=== PATIENT | female | born 1990 | race Two or more races ===

== ENCOUNTER 2019-03-28 00:39 | Emergency (ER) | payer MEDICAID ==
[~2019-03-28] VITALS: Ht 154.9 cm; Wt 52.6 kg
[~2019-03-28 00:39] MED LIST: METH40TA13 PO; PREN-145 OR
[2019-03-28 01:59] LABS: Urine Bacteria FEW /hpf (None Seen); Urine Blood Negative /uL (Negative); Urine Hyaline Cast FEW /lpf (0 - 2); Urine Mucus FEW (None Seen); Urine Specific Gravity 1.031 (1.001-1.035); Urine WBC 21 /hpf (0 - 5)
[2019-03-28 02:21] VITALS: BP 119/79
[2019-03-28] MEDS ORDERED: HYDROcodone-ACET 5/325MG TAB PO ONE (02:45)
[2019-03-28] MEDS ORDERED: cefTRIAXone W LIDOCAINE 1 GM IM IM ONE (02:45)
[2019-03-28] MEDS ORDERED: cefTRIAXone SOD 1,000 MG VL IM ONE (03:00)
[2019-03-28] MEDS ORDERED: MAGNESIUM CITRATE SOLUTION 300 ML BTL PO ONE (03:15)
== END 2019-03-28 03:42 | disposition home or self-care (01) ==
LOC: ER 00:41
DX: N39.0 Urinary tract infection, site not specified (principal); F17.210 Nicotine dependence, cigarettes, uncomplicated; F12.10 Cannabis abuse, uncomplicated; F15.10 Other stimulant abuse, uncomplicated
CPT/HCPCS: 74176; 81001; 81025; 96372; 99284; J0696

== ENCOUNTER 2020-03-22 20:58 | Inpatient (IN) | payer MEDICAID ==
[~2020-03-22] VITALS: Ht 152.4 cm; Wt 62.5 kg
[2020-03-22] MEDS ORDERED: LEVOTHYROXINE SODIUM 25 MCG TAB PO ONE ×2 (21:45)
[2020-03-22] MEDS ORDERED: LEVOTHYROXINE SODIUM 100 MCG/5 ML INJ IV ONE (21:45)
[2020-03-22] MEDS ORDERED: SODIUM CHLORIDE 0.9% 1,000 ML IV ONE ×2 (21:45→22:30)
[2020-03-22] MEDS ORDERED: ONDANSETRON HCL 4 MG/2 ML VIAL IV ONE (21:45)
[2020-03-22] MEDS ORDERED: MORPHINE SULF INJ 2 MG/ML SYRINGE 1ML IV PRN (22:15)
[2020-03-22] MEDS ORDERED: DOCUSATE SOD 100 MG CAP PO PRN (22:15)
[2020-03-22] MEDS ORDERED: ACETAMINOPHEN 325 MG TAB PO PRN (22:15)
[2020-03-22] MEDS ORDERED: NITROGLYCERIN 0.4 MG SL TAB SL PRN (22:15)
[2020-03-22] MEDS ORDERED: fentaNYL CITRATE 100 MCG/2 ML VL IV ONE (23:00)
[2020-03-22 23:01] LABS: Basophils # (auto) 0 10 ^3/uL (0-0.2); Basophils % (auto) 0.1 % (0.0-2.0); Eosinophils # (auto) 0 10 ^3/uL (0-0.8); White Blood Cell 27.9 10^3/uL (4.4-10.8)
[2020-03-22 23:03] LABS: Hematocrit 41.2 % (36.0-46.0); Hemoglobin 13.3 g/dL (12.2-16.2); Lymphocytes # (auto) 0.7 10 ^3/uL (0.4-5.4); Lymphocytes % (auto) 2.5 % (10.0-50.0); Mean Corpuscular Hemoglobin 26.2 pg (28.0-32.0); Mean Corpuscular Hgb Conc. 32.3 g/dL (32.0-36.0); Mean Corpuscular Volume 81.1 fL (80.0-100.0); Monocytes # (auto) 0.3 10 ^3/uL (0-1.3); Monocytes % (auto) 1.1 % (0.0-12.0); Neutrophils # (auto) 26.8 10 ^3/uL (1.6-8.6); Neutrophils % (auto) 96.3 % (37.0-80.0); Platelet Count (auto) 414 10^3/uL (140-450); Red Blood Cells 5.07 10^6/uL (4.0-5.20); Red Cell Distribution Width 13.2 % (11.8-14.3)
[2020-03-22 23:14] LABS: INR 1.32 (0.9-1.15); Partial Thromboplastin Time 32.2 sec (23.0-31.2)
[2020-03-22 23:30] VITALS: BP 115/70
--- NOTE | 2020-03-22 23:30 | NUR ---
Patient Brought to Unit from ER Patient is AOx4 having signs of pain and discomfort. Patient showing signs of agitation and yelling, "my stomach hurts." Patient is on Tele# 37 and running sinus rhythm. Patient is laying in bed with HOB at 30 degrees and bed is locked in lowest position. Will give medications as prescribed. Will continue to monitor.
[2020-03-22 23:35] LABS: Albumin 3.8 g/dL (3.4-5.0); BUN/Creatinine Ratio 15.1; Bilirubin, Total 0.9 mg/dL (0.2-1.0); Calcium 9.5 mg/dL (8.5-10.1); Potassium 3.9 mmol/L (3.5-5.1); Total Protein 8.8 g/dL (6.4-8.2)
[2020-03-23] MEDS: MORPHINE SULFATE 4 MG/ML SYR/VIAL IV PRN ×3 (00:03→08:40)
[2020-03-23] MEDS: ONDANSETRON HCL 4 MG/2 ML VIAL IV PRN ×2 (00:33→06:46)
--- NOTE | 2020-03-23 01:30 | NUR ---
Patient Wants to Leave Patient said " I want to go home." Educated patient that if she feels pain when she leaves she may have to go through ER again. Patient said , "I just don't feel good." Patient aware and said she will "just stay." Will continue to monitor.
[2020-03-23 01:49] VITALS: BP 115/70
--- NOTE | 2020-03-23 02:06 | NUR ---
Patient Complaining of Pain Patient is complaining of abdominal pain. Patient is yelling loudly from room, "Ow my stomach hurts!." Acknowledged patient's concerns and told her I will contact hospitalist for orders to help with pain. Patient is not due for morphine PRN. She claims it didn't help her pain level. Patient kept yelling, " I don't feel good." Hospitalist paged at this time. Addendum: 03/23/20 at 0228 by ALBA MADSEN RN RN Paged to hospitalist a second time. waiting for a call back. Patient currently in pain and having nausea.
--- NOTE | 2020-03-23 02:36 | NUR ---
Hospitalist Called at This Time Hospitalist called back. Orders received.
[2020-03-23] MEDS: HYDROcodone-ACET 5/325MG TAB PO PRN ×2 (02:44→06:47)
[2020-03-23] MEDS ORDERED: PANTOPRAZOLE 40 MG/10 ML VIAL INJ IV ONE (02:45)
[2020-03-23] MEDS ORDERED: SODIUM CHLOR 0.9% PF (SALINE LOCK) 10ML VIAL/SYR IV SCH (06:00)
[2020-03-23 06:28] VITALS: BP 96/64
[2020-03-23] MEDS ORDERED: LEVOTHYROXINE SODIUM 25 MCG TAB PO SCH (07:00)
--- NOTE | 2020-03-23 07:30 | NUR ---
Opening Shift Note RECEIVED REPORT FROM NOC RN. Assumed care of patient, awake and alert. No S/S of distress/SOB or pain. BED IN LOWEST, LOCKED POSITION WITH SIDERAILS UP x2 AND CALL LIGHT WITHIN REACH. Instructed on POC and to call for assist PRN, will continue to monitor for changes Q1hr and PRN.
[2020-03-23 09:00] VITALS: BP 120/70
[2020-03-23] MEDS ORDERED: cefTRIAXone 1GM/50ML D5W 50 ML IV ONE (09:45)
--- NOTE | 2020-03-23 09:45 | NUR ---
DR. GIL AT BEDSIDE.
[2020-03-23] MEDS ORDERED: PANTOPRAZOLE 40 MG/10 ML VIAL INJ IV SCH (10:00)
[2020-03-23] MEDS ORDERED: DOCUSATE SOD 100 MG CAP PO SCH (10:00)
[2020-03-23] MEDS ORDERED: PANTOPRAZOLE 40 MG TAB PO SCH (10:00)
[2020-03-23] MEDS ORDERED: LACTULOSE 20Gm/30ML SOLN PO SCH (10:00)
[2020-03-23] MEDS ORDERED: ASCORBIC ACID 500 MG TAB PO SCH (10:00)
[2020-03-23] MEDS ORDERED: MULTIPLE VITAMIN TAB PO SCH (10:00)
[2020-03-23] MEDS ORDERED: ZINC SULFATE 220mg CAP or TAB PO SCH (10:00)
[2020-03-23] MEDS ORDERED: ENOXAPARIN SOD 40 MG/0.4 ML SYRINGE SC SCH (10:00)
[2020-03-23] MEDS ORDERED: FAMOTIDINE 20 MG TAB PO SCH (10:00)
[2020-03-23] MEDS ORDERED: SUCRALFATE 1 GM TAB PO SCH (11:30)
--- NOTE | 2020-03-23 11:31 | NUR ---
PATIENT PROVIDED WITH SPECIMEN CUP FOR URINE COLLECTION.
--- NOTE | 2020-03-23 12:30 | NUR ---
ELOPEMENT PATIENT MISSING FROM BED. TELE BOX LAYING ON BED. PATIENT STILL WITH IV IN PLACE. [employer] [facility]ER CALLED.
--- NOTE | 2020-03-23 12:35 | NUR ---
TELE BOX 37 RETURNED TO MONITOR TECHS VIA BULLET.
--- NOTE | 2020-03-23 12:48 | NUR ---
[facility] NOTIFIED OF PATIENT ELOPEMENT WITH IV IN PLACE. SPOKE WITH FRANCIA FROM DISPATCH.
[2020-03-24] MEDS ORDERED: cefTRIAXone 1GM/50ML D5W 50 ML IV SCH (09:00)
== END 2020-03-23 12:30 | disposition left against medical advice (07) | DRG 251 ==
LOC: ER 21:01 → TELE 22:11 → TELE-CENTR 23:22
PROVIDERS: ADMIT Nurse Practitioner Family; ATTEND Internal Medicine
DX: R10.9 Unspecified abdominal pain (principal); K59.00 Constipation, unspecified; E03.9 Hypothyroidism, unspecified; E87.1 Hypo-osmolality and hyponatremia; N39.0 Urinary tract infection, site not specified; F17.210 Nicotine dependence, cigarettes, uncomplicated; Z79.891 Long term (current) use of opiate analgesic; Z90.49 Acquired absence of other specified parts of digestive tract; Z91.018 Allergy to other foods; Z91.14 Patient's other noncompliance with medication regimen
CPT/HCPCS: 36415; 74176; 80053; 84436; 84443; 85025; 85610; 85730; 93005; 96365; 99291; C9113; G0378; J0696; J2405; J3490

== ENCOUNTER 2020-03-23 22:12 | Emergency (ER) | payer MEDICAID ==
[~2020-03-23] VITALS: Ht 154.9 cm; Wt 54.9 kg
[2020-03-23 22:41] VITALS: BP 110/56
[2020-03-24 02:03] LABS: Alanine Aminotransferase 14 U/L (13-56); Albumin 3.1 g/dL (3.4-5.0); Alkaline Phosphatase 100 U/L (45-117); Amylase 14 U/L (25-115); Anion Gap 5 (5-15); Aspartate Aminotransferase 9 U/L (15-37); BUN/Creatinine Ratio 12.9; Bilirubin, Total 0.3 mg/dL (0.2-1.0); Blood Urea Nitrogen 12 mg/dL (7-18); Calcium 8.5 mg/dL (8.5-10.1); Carbon Dioxide 26 mmol/L (21-32); Chloride 101 mmol/L (98-107); GFR African American 92 mL/min; GFR Non-African American 76 mL/min; Glucose 92 mg/dL (74-106); Lipase 20 U/L (73-393); Magnesium 2.1 mg/dL (1.6-2.6); Potassium 3.8 mmol/L (3.5-5.1); Sodium 132 mmol/L (136-145); Total Protein 8.2 g/dL (6.4-8.2)
[2020-03-24 02:24] LABS: INR 1.34 (0.9-1.15)
[2020-03-24 02:32] LABS: Hematocrit 37.4 % (36.0-46.0); Mean Corpuscular Hemoglobin 25.8 pg (28.0-32.0); Mean Corpuscular Hgb Conc. 32.2 g/dL (32.0-36.0); Mean Corpuscular Volume 80.3 fL (80.0-100.0); Platelet Count (auto) 465 10^3/uL (140-450); Red Blood Cells 4.66 10^6/uL (4.0-5.20); Red Cell Distribution Width 13.3 % (11.8-14.3)
[2020-03-24 02:33] LABS: White Blood Cell 31.7 10^3/uL (4.4-10.8)
[2020-03-24 02:34] LABS: Basophils % (manual) 0 (0.0-2.0); Blast Cells 0; Eosinophils % (manual) 0 (0-7); Metamyelocytes % 0; Myelocytes % 0; Promyelocytes % 0; Reactive Lymphocytes 0
[2020-03-24 02:36] LABS: Band Neutrophils % (manual) 23; Lymphocytes % (manual) 8 (10.0-50.0); Monocytes % (manual) 1 (0-12)
[2020-03-24] MEDS ORDERED: PIPERACILLIN-TAZOB 3.375GM 100 ML IV ONE (02:45)
[2020-03-24] MEDS ORDERED: VANCOMYCIN 1GM/250ML 250 ML IV ONE (02:45)
[2020-03-24] MEDS ORDERED: MORPHINE SULFATE 4 MG/ML SYR/VIAL IV ONE (02:45)
[2020-03-24] MEDS ORDERED: ONDANSETRON HCL 4 MG/2 ML VIAL IV ONE (02:45)
[2020-03-24] MEDS ORDERED: SODIUM CHLORIDE 0.9% 1,650 ML IV ONE (02:45)
[2020-03-24 03:09] LABS: Amphetamine Screen, Urine POSITIVE (NEGATIVE); Barbiturate Scree,Urine NEGATIVE (NEGATIVE); Benzodiazephine Screen, Urine NEGATIVE (NEGATIVE); Cocaine Screen, Urine NEGATIVE (NEGATIVE); Phencyclidine Screen, Urine NEGATIVE (NEGATIVE)
[2020-03-24 03:13] LABS: Urine Bacteria MANY /hpf (None Seen); Urine Blood 3+ /uL (Negative); Urine Mucus MODERATE (None Seen); Urine Specific Gravity 1.045 (1.001-1.035); Urine WBC 15 /hpf (0 - 5)
[2020-03-24 03:17] LABS: Cannabinoid Screen, Urine NEGATIVE (NEGATIVE); Opiate Scree,Urine POSITIVE (NEGATIVE)
[2020-03-24] MEDS ORDERED: IOHEXOL 350 MG/ML 100ML IJ ONE (03:46)
== END 2020-03-24 05:44 | disposition left against medical advice (07) ==
LOC: ER 22:13
DX: R10.9 Unspecified abdominal pain (principal); Z53.21 Procedure and treatment not carried out due to patient leaving prior to being seen by health care provider
CPT/HCPCS: 36415; 80053; 80307; 81001; 82150; 83605; 83690; 83735; 84443; 84484; 84702; 85007; 85027; 85610; 85730; 87040; 87086; Q9967

== ENCOUNTER 2020-03-25 09:15 | Inpatient (IN) | payer MEDICAID ==
[~2020-03-25] VITALS: Ht 154.9 cm; Wt 54.4 kg
[2020-03-25 09:30] VITALS: BP 94/66
[2020-03-25] MEDS ORDERED: DOCUSATE SOD 100 MG CAP PO ONE (09:45)
[2020-03-25] MEDS ORDERED: MORPHINE SULFATE 4 MG/ML SYR/VIAL IV ONE (09:45)
[2020-03-25] MEDS ORDERED: SODIUM CHLORIDE 0.9% 1,000 ML IV ONE ×2 (09:45)
[2020-03-25] MEDS ORDERED: ONDANSETRON HCL 4 MG/2 ML VIAL IV ONE ×2 (09:45→12:45)
[2020-03-25] MEDS ORDERED: IOHEXOL 300 MG/ML 100ML BOTTLE IJ ONE (09:57)
[2020-03-25 10:16] LABS: Basophils # (auto) 0.1 10 ^3/uL (0-0.2); Basophils % (auto) 0.5 % (0.0-2.0); Eosinophils # (auto) 0.1 10 ^3/uL (0-0.8); Monocytes # (auto) 0.6 10 ^3/uL (0-1.3); Neutrophils # (auto) 8.7 10 ^3/uL (1.6-8.6)
[2020-03-25 10:17] LABS: Eosinophils % (auto) 1.1 % (0.0-7.0); Hemoglobin 11.7 g/dL (12.2-16.2); Lymphocytes # (auto) 2.1 10 ^3/uL (0.4-5.4); Mean Corpuscular Hemoglobin 26.2 pg (28.0-32.0); Mean Corpuscular Hgb Conc. 32.6 g/dL (32.0-36.0); Mean Corpuscular Volume 80.4 fL (80.0-100.0); Monocytes % (auto) 5.6 % (0.0-12.0); Neutrophils % (auto) 74.8 % (37.0-80.0); Platelet Count (auto) 493 10^3/uL (140-450); Red Blood Cells 4.47 10^6/uL (4.0-5.20); Red Cell Distribution Width 13.7 % (11.8-14.3); White Blood Cell 11.6 10^3/uL (4.4-10.8)
[2020-03-25 10:19] LABS: Urine Bacteria NONE SEEN /hpf (None Seen); Urine Blood 2+ /uL (Negative); Urine Mucus FEW (None Seen); Urine Specific Gravity 1.041 (1.001-1.035); Urine WBC 65 /hpf (0 - 5)
[2020-03-25 10:32] LABS: Alcohol, Urine < 3.0 mg/dL (0-10); Amphetamine Screen, Urine POSITIVE (NEGATIVE); Barbiturate Scree,Urine NEGATIVE (NEGATIVE); Benzodiazephine Screen, Urine NEGATIVE (NEGATIVE); Cannabinoid Screen, Urine NEGATIVE (NEGATIVE); Cocaine Screen, Urine NEGATIVE (NEGATIVE); Opiate Scree,Urine POSITIVE (NEGATIVE); Phencyclidine Screen, Urine NEGATIVE (NEGATIVE)
[2020-03-25 10:35] LABS: Albumin 2.6 g/dL (3.4-5.0); BUN/Creatinine Ratio 21.9; Bilirubin, Total 0.2 mg/dL (0.2-1.0); Calcium 8.8 mg/dL (8.5-10.1); Potassium 4.5 mmol/L (3.5-5.1); Total Protein 7.7 g/dL (6.4-8.2)
[2020-03-25] MEDS ORDERED: NITROGLYCERIN 0.4 MG SL TAB SL PRN ×2 (12:45→13:15)
[2020-03-25] MEDS ORDERED: LACTATED RINGER'S 1,000 ML IV ONE (12:45)
[2020-03-25] MEDS ORDERED: MORPHINE SULF INJ 2 MG/ML SYRINGE 1ML IV ONE (12:45)
[2020-03-25] MEDS ORDERED: MORPHINE SULF INJ 2 MG/ML SYRINGE 1ML IV PRN ×3 (12:45→13:15)
[2020-03-25] MEDS ORDERED: PNEUMOCOCCAL VACC POLYS 25 MCG/0.5 ML VIAL IM ONE (13:15)
[2020-03-25] MEDS ORDERED: ACETAMINOPHEN 325 MG TAB PO PRN (13:15)
[2020-03-25] MEDS ORDERED: LORazepam 0.5 MG TAB PO PRN (13:15)
[2020-03-25] MEDS ORDERED: HYDROcodone-ACET 5/325MG TAB PO PRN (13:15)
[2020-03-25] MEDS ORDERED: ALUM & MAG HYDROX-SIMETH LIQ(MAALOX) 30 ML PO PRN (13:15)
[2020-03-25] MEDS ORDERED: DOCUSATE SOD 100 MG CAP PO PRN (13:15)
[2020-03-25] MEDS ORDERED: INFLUENZA QUAD 2020-2021 0.5 ML SYRG IM ONE (13:15)
[2020-03-25] MEDS ORDERED: ONDANSETRON HCL 4 MG/2 ML VIAL IV PRN (13:15)
[2020-03-25] MEDS ORDERED: SODIUM CHLORIDE 0.9% 1,000 ML IV SCH (13:15)
[2020-03-25] MEDS ORDERED: CEFTRIAXONE SODIUM 2 GM in D5W 5% 50 ML IV ONE (14:00)
[2020-03-25] MEDS ORDERED: LACTULOSE 20Gm/30ML SOLN PO PRN (14:45)
[2020-03-25] MEDS ORDERED: LEVOTHYROXINE SODIUM 25 MCG TAB PO ONE (14:45)
[2020-03-25] MEDS ORDERED: CLINDAMYCIN 600MG IV 50 ML IV ONE (16:45)
[2020-03-25 17:17] LABS: Cholesterol 145 mg/dL (< 200); HDL Cholesterol 11 mg/dL (40-59); LDL Cholesterol 74 mg/dL (< 100); Triglycerides 320 mg/dL (< 150)
[2020-03-25] MEDS ORDERED: FAMOTIDINE (10MG/ML) 2ML VL IV SCH (22:00)
[2020-03-25] MEDS ORDERED: CLINDAMYCIN 600MG IV 50 ML IV SCH (22:00)
[2020-03-25] MEDS ORDERED: FOLIC ACID 1 MG TAB PO ONE (22:00)
[2020-03-26] MEDS ORDERED: LEVOTHYROXINE SODIUM 25 MCG TAB PO SCH (07:00)
[2020-03-26] MEDS ORDERED: CEFTRIAXONE SODIUM 2 GM in D5W 5% 50 ML IV SCH (10:00)
[2020-03-26] MEDS ORDERED: FOLIC ACID 1 MG TAB PO SCH (22:00)
== END 2020-03-25 16:01 | disposition left against medical advice (07) | DRG 532 ==
LOC: ER 09:15 → TELE 09:16
PROVIDERS: ADMIT Hospitalist; ATTEND Hospitalist
DX: N83.512 Torsion of left ovary and ovarian pedicle (principal); K52.9 Noninfective gastroenteritis and colitis, unspecified; E03.9 Hypothyroidism, unspecified; E43 Unspecified severe protein-calorie malnutrition; E87.1 Hypo-osmolality and hyponatremia; F17.210 Nicotine dependence, cigarettes, uncomplicated; K56.0 Paralytic ileus; N39.0 Urinary tract infection, site not specified; T40.2X5A Adverse effect of other opioids, initial encounter; Z91.018 Allergy to other foods; F12.10 Cannabis abuse, uncomplicated; F15.10 Other stimulant abuse, uncomplicated; F13.10 Sedative, hypnotic or anxiolytic abuse, uncomplicated; B95.7 Other staphylococcus as the cause of diseases classified elsewhere
CPT/HCPCS: 36415; 71045; 74177; 76830; 76856; 80053; 80061; 80307; 81001; 83036; 84443; 84484; 85025; 86304; 87086; 96361; 96374; 96375; G0378; J0696; J2405; J7060

== ENCOUNTER 2020-10-09 18:32 | Emergency (ER) | payer MEDICAID ==
[~2020-10-09] VITALS: Ht 154.9 cm; Wt 59.0 kg
[2020-10-09] MEDS ORDERED: SODIUM CHLORIDE 0.9% 1,000 ML IV ONE (19:15)
[2020-10-09] MEDS ORDERED: ONDANSETRON HCL 4 MG/2 ML VIAL IV ONE (19:15)
[2020-10-09] MEDS ORDERED: PANTOPRAZOLE 40 MG/10 ML VIAL INJ IV ONE (19:15)
[2020-10-09 19:36] LABS: Basophils # (auto) 0.1 10 ^3/uL (0-0.2); Eosinophils # (auto) 0 10 ^3/uL (0-0.8); Hemoglobin 13.4 g/dL (12.2-16.2); Lymphocytes # (auto) 1.4 10 ^3/uL (0.4-5.4); Red Cell Distribution Width 17.2 % (11.8-14.3)
[2020-10-09 19:39] LABS: Basophils % (auto) 0.5 % (0.0-2.0); Hematocrit 40.2 % (36.0-46.0); Lymphocytes % (auto) 12.3 % (10.0-50.0); Mean Corpuscular Hgb Conc. 33.3 g/dL (32.0-36.0); Mean Corpuscular Volume 78.2 fL (80.0-100.0); Monocytes # (auto) 0.2 10 ^3/uL (0-1.3); Monocytes % (auto) 1.7 % (0.0-12.0); Neutrophils # (auto) 9.5 10 ^3/uL (1.6-8.6); Neutrophils % (auto) 85.5 % (37.0-80.0); Nucleated Red Blood Cells % 0.3 %; Platelet Count (auto) 461 10^3/uL (140-450); Red Blood Cells 5.14 10^6/uL (4.0-5.20); White Blood Cell 11.1 10^3/uL (4.4-10.8)
[2020-10-09 19:50] LABS: Potassium 3.6 mmol/L (3.5-5.1)
[2020-10-09 19:56] LABS: BUN/Creatinine Ratio 16.3; Bilirubin, Total 0.4 mg/dL (0.2-1.0); Calcium 9.1 mg/dL (8.5-10.1); Magnesium 2.2 mg/dL (1.6-2.6); Total Protein 8.3 g/dL (6.4-8.2)
[2020-10-09 23:11] VITALS: BP 113/78
== END 2020-10-09 23:39 | disposition home or self-care (01) ==
LOC: ER 18:32
DX: R10.31 Right lower quadrant pain (principal); F17.210 Nicotine dependence, cigarettes, uncomplicated; F12.10 Cannabis abuse, uncomplicated; F15.10 Other stimulant abuse, uncomplicated; Z88.6 Allergy status to analgesic agent
CPT/HCPCS: 36415; 80053; 83735; 85025; 96374; 96375; 99284; C9113; J2405; J7030

== ENCOUNTER 2021-09-09 01:02 | Observation (INO) | payer MEDICAID ==
[~2021-09-09] VITALS: Ht 154.9 cm; Wt 70.3 kg
[2021-09-09] MEDS ORDERED: LACTATED RINGER'S 1,000 ML IV ONE (01:30)
[2021-09-09] MEDS ORDERED: LACTATED RINGER'S 1,000 ML IV SCH (01:30)
[2021-09-09 02:29] LABS: Amphetamine Screen, Urine POSITIVE (NEGATIVE); Barbiturate Scree,Urine NEGATIVE (NEGATIVE); Benzodiazephine Screen, Urine NEGATIVE (NEGATIVE); Cannabinoid Screen, Urine NEGATIVE (NEGATIVE); Cocaine Screen, Urine NEGATIVE (NEGATIVE); Opiate Scree,Urine NEGATIVE (NEGATIVE)
[2021-09-09 02:38] LABS: Phencyclidine Screen, Urine NEGATIVE (NEGATIVE)
[2021-09-09 03:04] LABS: Urine Bacteria NONE SEEN /hpf (None Seen); Urine Blood Negative /uL (Negative); Urine Specific Gravity 1.014 (1.001-1.035); Urine WBC 2 /hpf (0 - 5)
[2021-09-09 03:12] LABS: Alcohol, Urine < 3.0 mg/dL (0-10)
[2021-09-09] MEDS ORDERED: ACETAMINOPHEN 325 MG TAB PO ONE (03:30)
[2021-09-09 04:19] LABS: Hematocrit 38.7 % (36.0-46.0); Hemoglobin 13.1 g/dL (12.2-16.2); Mean Corpuscular Hgb Conc. 33.9 g/dL (32.0-36.0); Mean Corpuscular Volume 79.7 fL (80.0-100.0); Red Blood Cells 4.85 10^6/uL (4.0-5.20); Red Cell Distribution Width 13.7 % (11.8-14.3); White Blood Cell 29.1 10^3/uL (4.4-10.8)
[2021-09-09 04:32] LABS: Amylase 23 U/L (25-115); Lipase 30 U/L (73-393)
[2021-09-09 04:36] LABS: Albumin 3.3 g/dL (3.4-5.0); BUN/Creatinine Ratio 9.6; Calcium 9.3 mg/dL (8.5-10.1); Potassium 3.4 mmol/L (3.5-5.1)
[2021-09-09 04:38] LABS: Basophils % (manual) 0 (0.0-2.0); Blast Cells 0; Eosinophils % (manual) 0 (0-7); Promyelocytes % 0; Reactive Lymphocytes 0
[2021-09-09 04:39] LABS: Bilirubin, Total 0.6 mg/dL (0.2-1.0)
[2021-09-09 04:40] LABS: INR 1.01 (0.9-1.15); Partial Thromboplastin Time 25.6 sec (23.6-33.0)
[2021-09-09] MEDS ORDERED: SODIUM CHLORIDE 0.9% 1,000 ML IV SCH (05:30)
[2021-09-09] MEDS ORDERED: cefTRIAXone 1GM/50ML D5W 50 ML IV ONE (05:30)
[2021-09-09 07:00] LABS: Band Neutrophils % (manual) 34; Lymphocytes % (manual) 2 (10.0-50.0); Metamyelocytes % 2; Monocytes % (manual) 4 (0-12); Myelocytes % 1
[2021-09-10 05:06] LABS: Rubella Antibodies, IgG 9.55 index (Immune >0.99)
[2021-09-10 06:06] LABS: RPR Non Reactive (Non Reactive)
== END 2021-09-09 08:25 | disposition home or self-care (01) ==
LOC: LDRP 01:02
PROVIDERS: ADMIT Obstetrics & Gynecology; ATTEND Obstetrics & Gynecology
DX: O23.02 Infections of kidney in pregnancy, second trimester (principal); Z20.822 Contact with and (suspected) exposure to COVID-19; O99.282 Endocrine, nutritional and metabolic diseases complicating pregnancy, second trimester; E03.9 Hypothyroidism, unspecified; Z3A.26 26 weeks gestation of pregnancy; Z53.29 Procedure and treatment not carried out because of patient's decision for other reasons
CPT/HCPCS: 36415; 59025; 76705; 76775; 76805; 80053; 80307; 81001; 81002; 82150; 83690; 85007; 85027; 85610; 85730; 86592; 86703; 86762; 86850; 86900; 86901; 87340; 87426; 94760; 96361; 96365; G0378; J0696; 96360

== ENCOUNTER 2021-09-29 01:16 | Observation (INO) | payer MEDICAID ==
[~2021-09-29] VITALS: Ht 154.9 cm; Wt 73.5 kg
[2021-09-29 01:52] LABS: Urine Bacteria NONE SEEN /hpf (None Seen); Urine Blood Negative /uL (Negative); Urine Hyaline Cast FEW /lpf (0 - 2); Urine Mucus MODERATE (None Seen); Urine Specific Gravity 1.038 (1.001-1.035)
[2021-09-29 01:53] LABS: Urine WBC 38 /hpf (0 - 5)
[2021-09-29 02:01] LABS: Amphetamine Screen, Urine POSITIVE (NEGATIVE); Barbiturate Scree,Urine NEGATIVE (NEGATIVE); Benzodiazephine Screen, Urine NEGATIVE (NEGATIVE); Cannabinoid Screen, Urine NEGATIVE (NEGATIVE); Cocaine Screen, Urine NEGATIVE (NEGATIVE); Opiate Scree,Urine NEGATIVE (NEGATIVE); Phencyclidine Screen, Urine NEGATIVE (NEGATIVE)
== END 2021-09-29 02:55 | disposition home or self-care (01) ==
LOC: LDRP 01:16
PROVIDERS: ADMIT Obstetrics & Gynecology Obstetrics; ATTEND Obstetrics & Gynecology Obstetrics
DX: O26.893 Other specified pregnancy related conditions, third trimester (principal); R10.9 Unspecified abdominal pain; Z3A.29 29 weeks gestation of pregnancy; Z79.899 Other long term (current) drug therapy
CPT/HCPCS: 59025; 80307; 81001; 81002; 94760; G0378

== ENCOUNTER 2021-12-28 10:55 | Observation (INO) | payer OTHER ==
[2021-12-28] MEDS ORDERED: PREN-129 OR (13:02)
== END 2021-12-28 15:05 | disposition home or self-care (01) ==
LOC: UNDOADMOB 10:55 → LDRP 10:55 → UNDODISOB 15:05
PROVIDERS: ADMIT Obstetrics & Gynecology Obstetrics; ATTEND Obstetrics & Gynecology Obstetrics
DX: O62.9 Abnormality of forces of labor, unspecified (principal); O48.0 Post-term pregnancy; Z3A.38 38 weeks gestation of pregnancy
CPT/HCPCS: 59025; 76805; 76818; 81002; 87081; G0378

== ENCOUNTER → 2021-12-30 | Outpatient (CLI) | payer OTHER ==
[~2021-12-30] MED LIST changes: -METH40TA13 PO; +PREN-129 OR; -PREN-145 OR
== END | disposition home or self-care (01) ==
LOC: EDSTATUS 10:34 → UNDOADMOB 10:35 → LDRP 10:35 → XYW 10:35 → LDRP 10:42 → UNDODISOB 12:30
PROVIDERS: ATTEND Obstetrics & Gynecology
DX: O40.3XX1 Polyhydramnios, third trimester, fetus 1 (principal); Z3A.37 37 weeks gestation of pregnancy
CPT/HCPCS: 76818

== ENCOUNTER 2022-01-08 04:21 | Inpatient (IN) | payer MEDICAID, OTHER ==
[~2022-01-08] VITALS: Ht 154.9 cm; Wt 77.1 kg
[2022-01-08] MEDS ORDERED: LACT. RINGERS/OXYTOCIN 20UNITS 500 ML IV ONE ×2 (05:15→05:45)
[2022-01-08] MEDS ORDERED: PHISODERM TOP SOLN 240ML BTL TOP PRN (05:15)
[2022-01-08] MEDS ORDERED: miSOPROStol 100 mcg TAB PR PRN (05:15)
[2022-01-08] MEDS ORDERED: CARBOPROST TROMETHAMINE 250 MCG/1ML VIAL IM PRN (05:15)
[2022-01-08] MEDS ORDERED: LIDOCAINE 2%HCL (LOCAL ANESTH.) INJ 10ml MDV IJ PRN (05:15)
[2022-01-08] MEDS ORDERED: METHYLERGONOVINE MALEATE 0.2 MG/ML AMP IM PRN (05:15)
[2022-01-08] MEDS ORDERED: ONDANSETRON HCL 4 MG/2 ML VIAL IV PRN (05:15)
[2022-01-08] MEDS ORDERED: miSOPROStol 100 mcg TAB SL PRN (05:15)
[2022-01-08] MEDS ORDERED: PROMETHAZINE HCL 25 MG/ML 1ML IV PRN (05:15)
[2022-01-08] MEDS ORDERED: BUTORPHANOL TARTRATE 2 MG/1 ML VIAL IV PRN ×2 (05:15)
[2022-01-08 05:36] LABS: Eosinophils % (auto) 0.6 % (0.0-7.0); Lymphocytes # (auto) 1.7 10 ^3/uL (0.4-5.4); Mean Corpuscular Volume 82.2 fL (80.0-100.0); Monocytes # (auto) 0.7 10 ^3/uL (0-1.3); Nucleated Red Blood Cells % 0.1 %; Red Cell Distribution Width 14.8 % (11.8-14.3)
[2022-01-08 05:38] LABS: Basophils # (auto) 0 10 ^3/uL (0-0.2); Basophils % (auto) 0.5 % (0.0-2.0); Eosinophils # (auto) 0.1 10 ^3/uL (0-0.8); Hematocrit 42.6 % (36.0-46.0); Hemoglobin 13.6 g/dL (12.2-16.2); Lymphocytes % (auto) 20.8 % (10.0-50.0); Mean Corpuscular Hemoglobin 26.2 pg (28.0-32.0); Mean Corpuscular Hgb Conc. 31.9 g/dL (32.0-36.0); Neutrophils # (auto) 5.6 10 ^3/uL (1.6-8.6); Neutrophils % (auto) 69.1 % (37.0-80.0); Red Blood Cells 5.19 10^6/uL (4.0-5.20)
[2022-01-08 05:50] LABS: INR 0.92 (0.9-1.15); Partial Thromboplastin Time 33.6 sec (24.6-33.4)
[2022-01-08 05:51] LABS: Albumin 2.6 g/dL (3.4-5.0); Calcium 9.1 mg/dL (8.5-10.1); Potassium 4.5 mmol/L (3.5-5.1)
[2022-01-08 05:52] LABS: Alcohol, Urine < 3.0 mg/dL (0-10); Amphetamine Screen, Urine NEGATIVE (NEGATIVE); Barbiturate Scree,Urine NEGATIVE (NEGATIVE); Benzodiazephine Screen, Urine NEGATIVE (NEGATIVE); Cannabinoid Screen, Urine NEGATIVE (NEGATIVE); Cocaine Screen, Urine NEGATIVE (NEGATIVE); Opiate Scree,Urine NEGATIVE (NEGATIVE); Phencyclidine Screen, Urine NEGATIVE (NEGATIVE)
[2022-01-08 05:56] LABS: BUN/Creatinine Ratio 25.3; Bilirubin, Total 0.2 mg/dL (0.2-1.0); Total Protein 6.6 g/dL (6.4-8.2)
[2022-01-08 06:02] LABS: Urine Bacteria FEW /hpf (None Seen); Urine Blood 2+ /uL (Negative); Urine Mucus FEW (None Seen); Urine Specific Gravity 1.025 (1.001-1.035); Urine WBC 54 /hpf (0 - 5)
[2022-01-08] MEDS ORDERED: LIDOCAINE 2%HCL (LOCAL ANESTH.) INJ 20ML MDV ONE (07:10)
[2022-01-08] MEDS ORDERED: OXYTOCIN 10UNIT/ML 1ML VIAL IM ONE (07:15)
[2022-01-08] MEDS: WITCH HAZEL-GLYCERIN PAD TOP PRN ×2 (08:42→13:47)
[2022-01-08] MEDS: DERMOPLAST 60ML BOTTLE TOP PRN ×2 (08:42→13:47)
[2022-01-08] MEDS ORDERED: DIPHENOXYLATE W/ATROPINE 2.5 MG TAB PO SCH (10:00)
[2022-01-08] MEDS ORDERED: METHADONE HCL 10 MG TAB PO SCH (10:00)
[2022-01-08] MEDS: IBUPROFEN 600 MG TAB PO PRN ×3 (10:46→22:16)
[2022-01-08 11:30] VITALS: BP 118/72
[2022-01-08 12:42] LABS: Amphetamine Screen, Urine NEGATIVE (NEGATIVE); Barbiturate Scree,Urine NEGATIVE (NEGATIVE); Benzodiazephine Screen, Urine NEGATIVE (NEGATIVE); Cannabinoid Screen, Urine NEGATIVE (NEGATIVE); Cocaine Screen, Urine NEGATIVE (NEGATIVE); Opiate Scree,Urine NEGATIVE (NEGATIVE); Phencyclidine Screen, Urine NEGATIVE (NEGATIVE)
[2022-01-08 15:00] VITALS: BP 109/68
[2022-01-08] MEDS: LACTATED RINGER'S 1,000 ML IV SCH ×2 (16:56→16:57)
[2022-01-08] MEDS: ACETAMINOPHEN 325 MG TAB PO PRN (19:19)
[2022-01-08 19:30] VITALS: BP 114/70
[2022-01-08] MEDS ORDERED: DOCUSATE SOD 100 MG CAP PO SCH (22:00)
[2022-01-08 22:30] VITALS: BP 103/70
[2022-01-09 03:02] VITALS: BP 103/66
[2022-01-09] MEDS: ACETAMINOPHEN 325 MG TAB PO PRN (03:04)
[2022-01-09 06:30] VITALS: BP 104/64
[2022-01-09 08:06] LABS: RPR Non Reactive (Non Reactive)
== END 2022-01-09 08:00 | disposition home or self-care (01) | DRG 560 ==
LOC: LDRP 04:21 → OBSVTOIN 05:00 → LDRP 06:44
PROVIDERS: ADMIT Obstetrics & Gynecology; ATTEND Obstetrics & Gynecology
PROC: 10E0XZZ Delivery of Products of Conception, External Approach (ICD-10-PCS; principal; 2022-01-08)
PROC: 0KQM0ZZ Repair Perineum Muscle, Open Approach (ICD-10-PCS; 2022-01-08)
PROC: 0W8NXZZ Division of Female Perineum, External Approach (ICD-10-PCS; 2022-01-08)
DX: O77.0 Labor and delivery complicated by meconium in amniotic fluid (principal); Z37.0 Single live birth; O99.324 Drug use complicating childbirth; O70.1 Second degree perineal laceration during delivery; Z3A.39 39 weeks gestation of pregnancy; O69.81X0 Labor and delivery complicated by cord around neck, without compression, not applicable or unspecified; F11.90 Opioid use, unspecified, uncomplicated; Z91.018 Allergy to other foods; Z20.822 Contact with and (suspected) exposure to COVID-19
CPT/HCPCS: 36415; 59025; 59409; 80053; 80307; 81001; 81002; 85025; 85610; 85730; 86592; 86850; 86900; 86901; 94760; 96360; 96361; 96365; 96366; 96372; G0378; J2590

== ENCOUNTER 2022-08-07 20:33 | Emergency (ER) | payer MEDICAID ==
[~2022-08-07] VITALS: Ht 154.9 cm; Wt 74.0 kg
[2022-08-07 23:58] VITALS: BP 132/67
== END 2022-08-08 00:05 | disposition home or self-care (01) ==
LOC: ER 20:33
DX: S09.8XXA Other specified injuries of head, initial encounter (principal); R07.89 Other chest pain; F17.210 Nicotine dependence, cigarettes, uncomplicated; F12.10 Cannabis abuse, uncomplicated; F15.10 Other stimulant abuse, uncomplicated; F14.10 Cocaine abuse, uncomplicated; Z88.6 Allergy status to analgesic agent; Y04.2XXA Assault by strike against or bumped into by another person, initial encounter; Y93.89 Activity, other specified; Y92.89 Other specified places as the place of occurrence of the external cause; Y99.8 Other external cause status
CPT/HCPCS: 70450; 72125